=== PATIENT | female | born 1995 | race Hispanic/Latino ===

== ENCOUNTER 2023-05-01 19:30 | Inpatient (IN) | payer MEDICAID, OTHER ==
[2023-05-01] MEDS ORDERED: Misoprostol 200 MCG TAB PR PRN (21:14)
[2023-05-01] MEDS ORDERED: Ondansetron PF 4 MG/2 ML Vial IVP PRN (21:14)
[2023-05-01] MEDS ORDERED: Promethazine HCl 25 MG/ML VIAL IM PRN (21:14)
[2023-05-01] MEDS ORDERED: HYDROcodone/Acetaminophen 5/325 mg Tablet PO PRN (21:14)
[2023-05-01] MEDS ORDERED: Ibuprofen 800 MG TAB PO PRN (21:14)
[2023-05-01] MEDS ORDERED: Tranexamic Acid 1,000 MG/10 ML VIAL IVP PRN (21:14)
[2023-05-01] MEDS ORDERED: Diphenoxylate HCl/Atropine Tablet PO PRN (21:14)
[2023-05-01] MEDS ORDERED: Methylergonovine 0.2 MG/ML VIAL IM PRN (21:14)
[2023-05-01] MEDS ORDERED: Carboprost 250 MCG/ML AMP IM PRN (21:14)
[2023-05-01] MEDS ORDERED: hydrALAZINE 20 MG/ML VIAL SLOW IVP PRN (21:14)
[2023-05-01] MEDS ORDERED: fentaNYL 50 mcg/mL 1 mL Vial SLOW IVP PRN (21:14)
[2023-05-01] MEDS ORDERED: Lidocaine 1% (PF) 30 ML VIAL SC PRN (21:14)
[2023-05-01] MEDS ORDERED: Acetaminophen 500 MG TAB PO PRN (21:14)
[2023-05-01] MEDS ORDERED: Oxytocin 30 units/NS 500 ML 500 ML IV SCH ×3 (21:15)
[2023-05-01 22:58] VITALS: BMI 35.9
[2023-05-02] MEDS: Misoprostol 100 MCG TAB PO SCH ×5 (00:03→22:23)
[2023-05-02 00:21] LABS: Hematocrit 28.5 % (34.9-44.5); Hemoglobin 9.2 g/dL (12.0-15.5); Mean Corpuscular HGB CONC 32.3 g/dL (32.0-36.0); Mean Corpuscular Hemoglobin 26.3 pg (27.0-33.0); Mean Corpuscular Volume 81.4 fl (81.6-98.3); Mean Platelet Volume 11.3 fl (7.4-10.4); Platelet Count 189 10x3/uL (150-450); RBC Distribution Width 14.2 % (11.5-14.5); White Blood Cell (WBC) Count 7.8 10x3/uL (3.5-10.5)
[2023-05-02 01:09] LABS: Syphilis Antibody Nonreactive (Nonreactive)
[2023-05-02 01:10] LABS: HBSAg Index 0.19 S/CO (0-0.99); Hep B Surf Ag - L&D Non-Reactive S/CO (NonReactive)
[2023-05-03] MEDS: Misoprostol 100 MCG TAB PO SCH ×3 (00:34→11:20)
[2023-05-03] MEDS ORDERED: Lidocaine 1% (PF) 30 ML VIAL ONE (07:20)
[2023-05-03] MEDS ORDERED: Benzocaine-Menthol 82.5 ML CAN TOP PRN (11:02)
[2023-05-03] MEDS ORDERED: Bisacodyl 10 MG SUPP PR PRN (11:02)
[2023-05-03] MEDS ORDERED: HYDROcodone/Acetaminophen 5/325 mg Tablet PO PRN ×2 (11:02)
[2023-05-03] MEDS ORDERED: diphenhydrAMINE 25 MG CAP PO PRN (11:02)
[2023-05-03] MEDS ORDERED: Milk Of Magnesia 30 ML UDCUP PO PRN (11:02)
[2023-05-03] MEDS ORDERED: Lanolin Ointment 7 GM TUBE TOP PRN (11:02)
[2023-05-03] MEDS ORDERED: Oxytocin 30 units/NS 500 ML 500 ML IV SCH (11:02)
[2023-05-03] MEDS ORDERED: hydrALAZINE 20 MG/ML VIAL SLOW IVP PRN (11:02)
[2023-05-03] MEDS ORDERED: Boostrix 0.5 ML (Tdap) VIAL (>/=7 yrs of age) IM ONE (11:02)
[2023-05-03] MEDS ORDERED: Ondansetron PF 4 MG/2 ML Vial IVP PRN (11:02)
[2023-05-03] MEDS: Ferrous Sulfate 325 MG TAB PO SCH (15:51)
[2023-05-03] MEDS: Ibuprofen 800 MG TAB PO SCH ×2 (15:51→23:47)
[2023-05-03] MEDS: Docusate 100 MG CAP PO SCH (21:40)
[2023-05-04] MEDS: Ferrous Sulfate 325 MG TAB PO SCH ×2 (08:19→15:56)
[2023-05-04] MEDS: Ibuprofen 800 MG TAB PO SCH ×3 (08:19→23:58)
[2023-05-04] MEDS: Prenatal Vitamin 1 TAB PO SCH (08:20)
[2023-05-04] MEDS: Docusate 100 MG CAP PO SCH ×2 (08:20→21:09)
[2023-05-05 07:52] VITALS: BP 124/69; TEMP 98.7
[2023-05-05] MEDS: Ibuprofen 800 MG TAB PO SCH ×2 (08:12→16:00)
[2023-05-05] MEDS: Ferrous Sulfate 325 MG TAB PO SCH (08:12)
[2023-05-05] MEDS: Docusate 100 MG CAP PO SCH (08:12)
[2023-05-05] MEDS: Prenatal Vitamin 1 TAB PO SCH (08:12)
== END 2023-05-05 17:30 | disposition home or self-care (01) | DRG 807 ==
LOC: CSHLD 20:29 → CSHPP 05-03 11:25
PROVIDERS: ADMIT Family Medicine; ATTEND Family Medicine
PROC: 10E0XZZ Delivery of Products of Conception, External Approach (ICD-10-PCS; principal; 2023-05-03)
PROC: 0KQM0ZZ Repair Perineum Muscle, Open Approach (ICD-10-PCS; 2023-05-03)
PROC: 3E033VJ Introduction of Other Hormone into Peripheral Vein, Percutaneous Approach (ICD-10-PCS; 2023-05-03)
DX: O24.420 Gestational diabetes mellitus in childbirth, diet controlled (principal); Z37.0 Single live birth; O34.13 Maternal care for benign tumor of corpus uteri, third trimester; Z3A.39 39 weeks gestation of pregnancy; O70.1 Second degree perineal laceration during delivery
CPT/HCPCS: 36415; 36416; 85027; 86780; 86850; 86900; 86901; 87340